=== PATIENT | female | born 1955 | race African-American/Black ===

== ENCOUNTER 2016-08-21 18:48 | Emergency (ER) | payer OTHER ==
[~2016-08-21] VITALS: Ht 165.1 cm; Wt 72.6 kg
[2016-08-21] MEDS ORDERED: LISI10TA2 PO (18:58)
[2016-08-21] MEDS ORDERED: LOVA20TA2 PO (18:58)
[2016-08-21] MEDS ORDERED: LABETALOL 20 MG/4 ML DISP.SYRIN. IVP ONE (20:15)
[2016-08-21] MEDS ORDERED: FENTANYL PF 100 MCG/2 ML VIAL. IV PRN (20:15)
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
[2016-08-21] MEDS ORDERED: NAPROXEN 250 MG TABLET PO ONE (21:45)
[2016-08-21] MEDS ORDERED: CYCLOBENZAPRINE 10 MG TABLET. PO ONE (21:45)
[2016-08-21 21:57] VITALS: BP 153/80
[2016-08-21] MEDS ORDERED: CYCL10TA2 PO (21:58)
[2016-08-21] MEDS ORDERED: NAPR250T2 PO (21:58)
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
== END 2016-08-21 22:38 | disposition home or self-care (01) ==
LOC: ER 18:48
DX: I15.9 Secondary hypertension, unspecified (principal); M54.5 Low back pain; M54.2 Cervicalgia; E78.00 Pure hypercholesterolemia, unspecified; Z88.0 Allergy status to penicillin; V49.50XA Passenger injured in collision with unspecified motor vehicles in traffic accident, initial encounter; Y93.89 Activity, other specified; Y92.410 Unspecified street and highway as the place of occurrence of the external cause; Y99.8 Other external cause status
CPT/HCPCS: 70450; 72100; 96374; 99284; J3010